=== PATIENT | male | born 1995 | race Two or more races ===

== ENCOUNTER 2017-06-13 11:10 | Emergency (ER) | payer OTHER ==
[~2017-06-13] VITALS: Ht 180.3 cm; Wt 60.6 kg
[~2017-06-13 11:10] MED LIST: HYDROCODONE; ONDA4TAB10 PO; PHENERGAN SUPPOS
[2017-06-13] MEDS ORDERED: MORPHINE SULFATE 4 MG/ML, 1ML IVPush PRN (11:30)
[2017-06-13] MEDS ORDERED: SODIUM CHLORIDE FLUSH 10ML SYR IVF ONE (11:30)
[2017-06-13] MEDS ORDERED: ONDANSETRON 2MG/ML, 2ML IVPush ONE (11:30)
[2017-06-13] MEDS ORDERED: SODIUM CHLORIDE 0.9% 1,000ML IVBOLUS ONE (11:30)
[2017-06-13 11:47] LABS: HEMATOCRIT 58.1 % (39.2-51.8); HEMOGLOBIN 19.5 g/dL (13.7-18.0); WHITE BLOOD COUNT 9.3 x10^3/uL (4.5-13.2)
[2017-06-13 11:58] LABS: BLOOD UREA NITROGEN 25 mg/dL (7-18)
[2017-06-13 12:02] LABS: ASPARTATE AMINO TRANSFERASE 16 U/L (15-37)
[2017-06-13] MEDS ORDERED: MORPHINE SULFATE 4 MG/ML, 1ML ONE ×2 (12:05→13:06)
[2017-06-13] MEDS ORDERED: ONDANSETRON 2MG/ML, 2ML ONE (12:05)
[2017-06-13] MEDS ORDERED: FAMOTIDINE 20 MG/2 ML IVPush ONE (12:30)
[2017-06-13] MEDS ORDERED: MAALOX/HYOSCYAMINE/LIDOCAINE 45 ML BTL PO ONE (12:30)
[2017-06-13] MEDS ORDERED: FAMOTIDINE 20 MG/2 ML ONE (13:06)
[2017-06-13] MEDS ORDERED: MAALOX/HYOSCYAMINE/LIDOCAINE 45 ML BTL ONE (13:06)
[2017-06-13 14:24] VITALS: BP 142/99
== END 2017-06-13 14:28 | disposition home or self-care (01) ==
LOC: ED 13:51
DX: R11.2 Nausea with vomiting, unspecified (principal); E86.0 Dehydration
CPT/HCPCS: 36415; 80053; 82010; 83690; 85025; 93005; 96361; 96374; 96375; 99285; J2405; J7030; S0028

== ENCOUNTER 2017-06-16 11:58 | Emergency (ER) | payer OTHER ==
[~2017-06-16] VITALS: Ht 180.3 cm; Wt 60.0 kg
[2017-06-16] MEDS ORDERED: SODIUM CHLORIDE 0.9% 1,000 ML IV ONE (12:26)
[2017-06-16] MEDS ORDERED: ONDANSETRON 2MG/ML, 2ML IVPush ONE (12:30)
[2017-06-16] MEDS ORDERED: SODIUM CHLORIDE 0.9% 1,000ML IVBOLUS ONE (12:30)
[2017-06-16] MEDS ORDERED: FAMOTIDINE 20 MG/2 ML IVP ONE (12:30)
[2017-06-16] MEDS ORDERED: ONDANSETRON 2MG/ML, 2ML ONE (12:52)
[2017-06-16] MEDS ORDERED: MORPHINE SULFATE 4 MG/ML, 1ML ONE ×2 (12:52→13:36)
[2017-06-16] MEDS ORDERED: LORazepam 2 MG/ML, 1ML ONE ×2 (12:53→13:36)
[2017-06-16] MEDS ORDERED: FAMOTIDINE 20 MG/2 ML ONE (12:53)
[2017-06-16] MEDS: MORPHINE SULFATE 4 MG/ML, 1ML IVPush PRN ×2 (12:57→13:45)
[2017-06-16 12:59] LABS: ASPARTATE AMINO TRANSFERASE 22 U/L (15-37); BLOOD UREA NITROGEN 15 mg/dL (7-18); HEMATOCRIT 49.9 % (39.2-51.8); WHITE BLOOD COUNT 6.8 x10^3/uL (4.5-13.2)
[2017-06-16] MEDS ORDERED: LORazepam 2 MG/ML, 1ML IVPush ONE (13:30)
[2017-06-16 13:49] VITALS: BP 147/85
== END 2017-06-16 14:50 | disposition home or self-care (01) ==
LOC: ED 13:16
DX: T40.7X5A Adverse effect of cannabis (derivatives), initial encounter (principal); R11.2 Nausea with vomiting, unspecified; E87.6 Hypokalemia; Y92.9 Unspecified place or not applicable
CPT/HCPCS: 36415; 76700; 80053; 83690; 85025; 93005; 96361; 96374; 96375; 96376; 99285; J2060; J2405; J7030; S0028